=== PATIENT | female | born 1990 | race Caucasian/White ===

== ENCOUNTER 2018-02-08 20:14 | Emergency (ER) | payer SELFPAY ==
[~2018-02-08] VITALS: Ht 167.6 cm; Wt 62.6 kg
[2018-02-08 20:25] VITALS: BP 107/77
[2018-02-08] MEDS ORDERED: CEFTRIAXONE 500 MG VIAL ONE (20:57)
[2018-02-08] MEDS ORDERED: LIDOCAINE /MPF 1% VIAL 5 ML VIAL ONE (20:57)
[2018-02-08] MEDS ORDERED: AZITHROMYCIN 250 MG TABLET ONE (20:58)
[2018-02-08] MEDS ORDERED: CEFTRIAXONE 500 MG VIAL IM ONE (21:00)
[2018-02-08] MEDS ORDERED: AZITHROMYCIN 250 MG TABLET PO ONE (21:00)
[2018-02-08 21:27] LABS: APPEARANCE,URINE Clear (CLEAR); BILIRUBIN,URINE Negative (NEGATIVE); BLOOD, URINE Trace-intact Ery/uL (NEGATIVE); COLOR,URINE Yellow (YELLOW); KETONES,URINE Negative (NEGATIVE); LEUKOCYTE ESTERASE ,URINE Negative (NEGATIVE); NITRITE, URINE Negative (NEGATIVE); PROTEIN,URINE Negative (NEGATIVE); UGLUCOSE Negative (NEGATIVE); UROBILINOGEN,URINE 0.2 EU/dL (0.2)
[2018-02-08 21:31] LABS: BACTERIA,URINE Rare /HPF (None Seen); SQUAMOUS EPITHELIAL CELL,UR Few /HPF (None Seen); WBC,URINE NONE SEEN /HPF (0-3)
== END 2018-02-08 21:21 | disposition home or self-care (01) ==
LOC: ER 20:19
DX: Z20.2 Contact with and (suspected) exposure to infections with a predominantly sexual mode of transmission (principal)
CPT/HCPCS: 81000-TC; 84703-TC; 87491; 87591; A4606; J0696; J3490; Z7610